=== PATIENT | female | born 1960 | race African-American/Black ===

== ENCOUNTER 2024-07-22 05:41 | Observation (INO) | payer BC ==
--- OUTSIDE RECORDS SUMMARY | 2024-07-22 05:44 | XMS REPORT | Continuity of Care Document ---
Author Name Unknown Address [address] [facility] [address] [place] [address] [facility] thconnect Address [address] [facility] [address] [place] [address] Care Team Providers Care Surveillance Monitor Name Role Phone ROUSE_F Attending Clinician Unavailable GC_GCBZW_Kadiyala_S Attending Clinician Unavaila tiburcio PADILLA_R Attending Clinician Unavailable Amandeep Padilla Attending Clinician [phone] ROUSE_F Admitting Clinician Unavailable GC_GCBZW_Kadiyala_S Admitting Clinician Unavaila tiburcio TITUSON_R Admitting Clinician Unavailable Payers Payer Name Policy Type Policy Number Effective Date Expirati on Date Source [place] [id number] 2019 00:00:00 Problems Condition Name Condition Details Condition Category Status Onset Date Resolution Date Last Treatment Date Treating Clinician Comments Source Vitamin D deficiency Vitamin D Deficiency Problem Active 01-26 00:00: 00 [facility] Mixed anxiety and depressive disorder Mixed Anxiety and Depressive Disorder Problem Active 01-18 00:00: 00 [facility] Non-rheuma tic mitral regurgitat ion Non-rheuma tic Mitral Regurgitat ion Problem Active 01-13 00:00: 00 [facility] Aortic incompeten ce, non-rheuma tic Aortic Incompeten ce, Non-rheuma tic Problem Active 01-13 00:00: [facility] Paroxysmal atrial fibrillati on Paroxysmal Atrial Fibrillati on Problem Active 01-13 00:00: 00 [facility] Long-term current use of anticoagul ant Long-term Current Use of Anticoagul ant Problem Active 8-04 00:00: 00 [facility] Anxiety Anxiety Problem Active 7-14 00:00: 00 [facility] Body mass index 40+ - severely obese Body Mass Index 40+ - Severely Obese Problem Active 3-22 00:00: 00 [facility] Hyperchole sterolemia Hyperchole sterolemia Problem Active 2-24 00:00: 00 [facility] Prediabete s Prediabete s Problem Active 2-24 00:00: 00 [facility] Iron deficiency anemia Iron Deficiency Anemia Problem Active 3-15 00:00: 00 [facility] Essential hypertensi on Essential Hypertensi on Problem Active 7- 00:00: 00 [facility] Social History Smoking Status Start Date Stop Date Source Never Smoker [facility] Medications Ordered Medication Name Filled Medication Name Start Date Stop Date Current Medication? Ordering Clinician Indication Dosage Frequency Signature (SIG) Comments Components Source carvedilol 3.125 mg tablet TAKE 1 TABLET BY MOUTH TWICE DAILY carvedilol 3.125 mg tablet TAKE 1 TABLET BY MOUTH TWICE DAILY No carvedilol 3.125 mg tablet TAKE 1 TABLET BY MOUTH TWICE DAILY [facility] carvedilol 6.25 mg tablet Take 1 tablet twice a day by oral route. carvedilol 6.25 mg tablet Take 1 tablet twice a day by oral route. No 1 BID carvedilol 6.25 mg tablet Take 1 tablet twice a day by oral route. [facility] carvedilol 12.5 mg tablet Take 1 tablet twice a day by oral route. carvedilol 12.5 mg tablet Take 1 tablet twice a day by oral route. No 1 BID carvedilol 12.5 mg tablet Take 1 tablet twice a day by oral route. [facility] carvedilol 6.25 mg tablet TAKE 1 TABLET BY MOUTH TWICE DAILY carvedilol 6.25 mg tablet TAKE 1 TABLET BY MOUTH TWICE DAILY No carvedilol 6.25 mg tablet TAKE 1 TABLET BY MOUTH TWICE DAILY [facility] atorvastati n 10 mg tablet Take 1 tablet every day by oral route. atorvastati n 10 mg tablet Take 1 tablet every day by oral route. No 1 Q1D atorvastat in 10 mg tablet Take 1 tablet every day by oral route. [facility] fenofibrate micronized 134 mg capsule Take 1 capsule every day by oral route for 10 days. fenofibrate micronized 134 mg capsule Take 1 capsule every day by oral route for 10 days. No 1capsul e(s) Q1D fenofibrat e micronized 134 mg capsule Take 1 capsule every day by oral route for 10 days. [facility] hydroxychlo roquine 200 mg tablet 2 po first dose then 1 po bid x 5 days hydroxychlo roquine 200 mg tablet 2 po first dose then 1 po bid x 5 days No hydroxychl oroquine 200 mg tablet 2 po first dose then 1 po bid x 5 days [facility] ivermectin 3 mg tablet Take 5 tablets every day by oral route for 5 days. ivermectin 3 mg tablet Take 5 tablets every day by oral route for 5 days. No 5 Q1D ivermectin 3 mg tablet Take 5 tablets every day by oral route for 5 days. [facility] prednisone 20 mg tablet 3 po first day, 2 po second day, 1 po qd until gone prednisone 20 mg tablet 3 po first day, 2 po second day, 1 po qd until gone No prednisone 20 mg tablet 3 po first day, 2 po second day, 1 po qd until gone [facility] Zithromax Z-Bernardo 250 mg tablet TAKE 2 TABLETS (500 MG) BY ORAL ROUTE ONCE DAILY FOR 1 DAY THEN 1 TABLET (250 MG) BY ORAL ROUTE ONCE DAILY FOR 4 DAYS Zithromax Z-Bernardo 250 mg tablet TAKE 2 TABLETS (500 MG) BY ORAL ROUTE ONCE DAILY FOR 1 DAY THEN 1 TABLET (250 MG) BY ORAL ROUTE ONCE DAILY FOR 4 DAYS No Zithromax Z-Bernardo 250 mg tablet TAKE 2 TABLETS (500 MG) BY ORAL ROUTE ONCE DAILY FOR 1 DAY THEN 1 TABLET (250 MG) BY ORAL ROUTE ONCE DAILY FOR 4 DAYS [facility] carvedilol 25 mg tablet Take 1 tablet twice a day by oral route. carvedilol 25 mg tablet Take 1 tablet twice a day by oral route. No 1 BID carvedilol 25 mg tablet Take 1 tablet twice a day by oral route. [facility] Eliquis 5 mg tablet TAKE 1 TABLET BY MOUTH TWICE DAILY Eliquis 5 mg tablet TAKE 1 TABLET BY MOUTH TWICE DAILY No Eliquis 5 mg tablet TAKE 1 TABLET BY MOUTH TWICE DAILY [facility] hydroxyzine HCl 25 mg tablet TAKE 1 TABLET BY MOUTH THREE TIMES DAILY NEEDED hydroxyzine HCl 25 mg tablet TAKE 1 TABLET BY MOUTH THREE TIMES DAILY NEEDED No hydroxyzin e HCl 25 mg tablet TAKE 1 TABLET BY MOUTH THREE TIMES DAILY NEEDED [facility] losartan 50 mg tablet TAKE 1 TABLET BY MOUTH EVERY DAY losartan 50 mg tablet TAKE 1 TABLET BY MOUTH EVERY DAY No losartan 50 mg tablet TAKE 1 TABLET BY MOUTH EVERY DAY [facility] venlafaxine ER 75 mg capsule,ext ended release 24 hr Take 1 capsule every day by oral route for 30 days. venlafaxine ER 75 mg capsule,ext ended release 24 hr Take 1 capsule every day by oral route for 30 days. No 1capsul e(s) Q1D venlafaxin e ER 75 mg capsule,ex tended release 24 hr Take 1 capsule every day by oral route for 30 days. [facility] atorvastati n 10 mg tablet TAKE 1 TABLET BY MOUTH EVERY DAY atorvastati n 10 mg tablet TAKE 1 TABLET BY MOUTH EVERY DAY No atorvastat in 10 mg tablet TAKE 1 TABLET BY MOUTH EVERY DAY [facility] carvedilol 25 mg tablet TAKE 1 TABLET BY MOUTH TWICE DAILY carvedilol 25 mg tablet TAKE 1 TABLET BY MOUTH TWICE DAILY No carvedilol 25 mg tablet TAKE 1 TABLET BY MOUTH TWICE DAILY [facility] Eliquis 5 mg tablet TAKE 1 TABLET BY MOUTH TWICE DAILY Eliquis 5 mg tablet TAKE 1 TABLET BY MOUTH TWICE DAILY No Eliquis 5 mg tablet TAKE 1 TABLET BY MOUTH TWICE DAILY [facility] hydroxyzine HCl 25 mg tablet TAKE 1 TABLET BY MOUTH THREE TIMES DAILY NEEDED hydroxyzine HCl 25 mg tablet TAKE 1 TABLET BY MOUTH THREE TIMES DAILY NEEDED No hydroxyzin e HCl 25 mg tablet TAKE 1 TABLET BY MOUTH THREE TIMES DAILY NEEDED [facility] losartan 50 mg tablet TAKE 1 TABLET BY MOUTH EVERY DAY losartan 50 mg tablet TAKE 1 TABLET BY MOUTH EVERY DAY No losartan 50 mg tablet TAKE 1 TABLET BY MOUTH EVERY DAY [facility] venlafaxine ER 75 mg capsule,ext ended release 24 hr TAKE 1 CAPSULE BY MOUTH EVERY DAY venlafaxine ER 75 mg capsule,ext ended release 24 hr TAKE 1 CAPSULE BY MOUTH EVERY DAY No venlafaxin e ER 75 mg capsule,ex tended release 24 hr TAKE 1 CAPSULE BY MOUTH EVERY DAY [facility] atorvastati n 10 mg tablet TAKE 1 TABLET BY MOUTH EVERY DAY atorvastati n 10 mg tablet TAKE 1 TABLET BY MOUTH EVERY DAY No atorvastat in 10 mg tablet TAKE 1 TABLET BY MOUTH EVERY DAY [facility] carvedilol 25 mg tablet TAKE 1 TABLET BY MOUTH TWICE DAILY carvedilol 25 mg tablet TAKE 1 TABLET BY MOUTH TWICE DAILY No carvedilol 25 mg tablet TAKE 1 TABLET BY MOUTH TWICE DAILY [facility] Eliquis 5 mg tablet TAKE 1 TABLET BY MOUTH TWICE DAILY Eliquis 5 mg tablet TAKE 1 TABLET BY MOUTH TWICE DAILY No Eliquis 5 mg tablet TAKE 1 TABLET BY MOUTH TWICE DAILY [facility] hydroxyzine HCl 25 mg tablet TAKE 1 TABLET BY MOUTH THREE TIMES DAILY NEEDED hydroxyzine HCl 25 mg tablet TAKE 1 TABLET BY MOUTH THREE TIMES DAILY NEEDED No hydroxyzin e HCl 25 mg tablet TAKE 1 TABLET BY MOUTH THREE TIMES DAILY NEEDED [facility] losartan 100 mg tablet TAKE 1 TABLET BY MOUTH EVERY DAY losartan 100 mg tablet TAKE 1 TABLET BY MOUTH EVERY DAY No losartan 100 mg tablet TAKE 1 TABLET BY MOUTH EVERY DAY [facility] venlafaxine ER 75 mg capsule,ext ended release 24 hr TAKE 1 CAPSULE BY MOUTH EVERY DAY venlafaxine ER 75 mg capsule,ext ended release 24 hr TAKE 1 CAPSULE BY MOUTH EVERY DAY No venlafaxin e ER 75 mg capsule,ex tended release 24 hr TAKE 1 CAPSULE BY MOUTH EVERY DAY [facility] amlodipine 5 mg tablet Take 1 tablet every day by oral route. amlodipine 5 mg tablet Take 1 tablet every day by oral route. No 1 Q1D amlodipine 5 mg tablet Take 1 tablet every day by oral route. [facility] Vital Signs Vital Name Observation Time Observation Value Comments S ource BMI (Body Mass Index) 2023-07-24 00:00:00 47 kg/m2 [facility] Height 2023-07-24 00:00:00 61 [in_i] [facility] BP Diastolic 2023-07-24 00:00:00 82 mm[Hg] [facility] Body Weight 2023-07-24 00:00:00 3984 [oz_av] [facility] BP Systolic 2023-07-24 00:00:00 122 mm[Hg] [facility] BP Diastolic 2022-07-28 00:00:00 74 mm[Hg] [facility] Height 2022-07-28 00:00:00 61 [in_i] [facility] BMI (Body Mass Index) 2022-07-28 00:00:00 41.9 kg/m2 [facility] BP Systolic 2022-07-28 00:00:00 134 mm[Hg] [facility] Body Weight 2022-07-28 00:00:00 3544 [oz_av] [facility] BP Diastolic 2022-02-22 00:00:00 80 mm[Hg] [facility] Height 2022-02-22 00:00:00 61 [in_i] [facility] BMI (Body Mass Index) 2022-02-22 00:00:00 43.3 kg/m2 [facility] BP Systolic 2022-02-22 00:00:00 118 mm[Hg] [facility] Body Weight 2022-02-22 00:00:00 3664 [oz_av] [facility] BP Diastolic 2022-01-18 00:00:00 76 mm[Hg] [facility] Height 2022-01-18 00:00:00 61 [in_i] [facility] BMI (Body Mass Index) 2022-01-18 00:00:00 42.5 kg/m2 [facility] BP Systolic 2022-01-18 00:00:00 118 mm[Hg] [facility] Body Weight 2022-01-18 00:00:00 3600 [oz_av] [facility] BP Diastolic 2021-12-23 00:00:00 88 mm[Hg] [facility] Height 2021-12-23 00:00:00 61 [in_i] [facility] BMI (Body Mass Index) 2021-12-23 00:00:00 42.9 kg/m2 [facility] BP Systolic 2021-12-23 00:00:00 138 mm[Hg] [facility] Body Weight 2021-12-23 00:00:00 3632 [oz_av] [facility] Height 2021-11-22 00:00:00 61 [in_i] [facility] BP Diastolic 2021-08-31 00:00:00 72 mm[Hg] [facility] Height 2021-08-31 00:00:00 61 [in_i] [facility] BMI (Body Mass Index) 2021-08-31 00:00:00 44 kg/m2 [facility] BP Systolic 2021-08-31 00:00:00 136 mm[Hg] [facility] Body Weight 2021-08-31 00:00:00 3728 [oz_av] [facility] BP Diastolic 2021-08-05 00:00:00 86 mm[Hg] [facility] Height 2021-08-05 00:00:00 61 [in_i] [facility] BMI (Body Mass Index) 2021-08-05 00:00:00 44 kg/m2 [facility] BP Systolic 2021-08-05 00:00:00 144 mm[Hg] [facility] Body Weight 2021-08-05 00:00:00 3728 [oz_av] [facility] BP Diastolic 2021-04-15 00:00:00 82 mm[Hg] [facility] Height 2021-04-15 00:00:00 61 [in_i] [facility] BMI (Body Mass Index) 2021-04-15 00:00:00 42.3 kg/m2 [facility] BP Systolic 2021-04-15 00:00:00 124 mm[Hg] [facility] Body Weight 2021-04-15 00:00:00 3584 [oz_av] [facility] BP Diastolic 2021-04-01 00:00:00 82 mm[Hg] [facility] Height 2021-04-01 00:00:00 61 [in_i] [facility] BMI (Body Mass Index) 2021-04-01 00:00:00 42.5 kg/m2 [facility] BP Systolic 2021-04-01 00:00:00 158 mm[Hg] [facility] Body Weight 2021-04-01 00:00:00 3600 [oz_av] [facility] BP Diastolic 2021-01-28 00:00:00 78 mm[Hg] [facility] Height 2021-01-28 00:00:00 61 [in_i] [facility] BMI (Body Mass Index) 2021-01-28 00:00:00 43.5 kg/m2 [facility] BP Systolic 2021-01-28 00:00:00 118 mm[Hg] [facility] Body Weight 2021-01-28 00:00:00 3680 [oz_av] [facility] BP Diastolic 2020-08-25 00:00:00 84 mm[Hg] [facility] Height 2020-08-25 00:00:00 61 [in_i] [facility] BMI (Body Mass Index) 2020-08-25 00:00:00 42.7 kg/m2 [facility] BP Systolic 2020-08-25 00:00:00 182 mm[Hg] [facility] Body Weight 2020-08-25 00:00:00 3616 [oz_av] [facility] Procedures Procedure Date / Time Performed Performing Clinicia n Source MAMMO, screening, bilateral 2023-07-24 00:00:00 [facility] MAMMO, screening, bilateral 2021-08-05 00:00:00 [facility] Delivery 1985-05-26 00:00:00 [facility] Plan of Care Planned Activity Planned Date Details Comments Source Diagnostic Test Pending 2023-07-24 00:00:00 CMP, serum or plasma [code = CMP, serum or plasma] [facility] Diagnostic Test Pending 2023-07-24 00:00:00 CBC w/ auto diff [code = CBC w/ auto diff] [facility] Diagnostic Test Pending 2023-07-24 00:00:00 HbA1c (hemoglobin A1c), blood [code = HbA1c (hemoglobin A1c), blood] [facility] Diagnostic Test Pending 2023-07-24 00:00:00 vitamin D, 25-hydroxy, total, serum [code = vitamin D, 25-hydroxy, total, serum] [facility] Diagnostic Test Pending 2023-07-24 00:00:00 lipid panel, serum [code = lipid panel, serum] [facility] Diagnostic Test Pending 2023-07-24 00:00:00 TSH + free T4, serum [code = TSH + free T4, serum] [facility] Diagnostic Test Pending 2023-07-24 00:00:00 urinalysis, complete [code = urinalysis, complete] [facility] Diagnostic Test Pending 2023-07-24 00:00:00 noninvasive colorectal cancer DNA + occult blood screening, QL, stool [code = noninvasive colorectal cancer DNA + occult blood screening, QL, stool] [facility] Future Scheduled Test Close foll ow up with PCP and cardio. [code = Close follow up with PCP and cardio.] [facility] Instructions [facility] Encounters Start Date/Time End Date/Time Encounter Type Admission Type Attending Clinicians Care Facility Care Department Encounter ID Source 2023-07-24 00:00:2023-07-24 00:00:00 Out[address] ROUSE_F [facility] [id number] [facility] 2023-07-24 00:00:00 2023-07-24 00:00:00 JORGE Monteiro-C: [address] [place] [address] , Ph. [phone] [facility], [address] PAD[place]A [id number] [facility] 2023-07-17 00:00:00 2023-07-17 00:00:00 [address] R[facility]_F [facility] [id number] [facility] 2023-04-10 00:00:00 2023-04-10 00:00:00 Outpatient GC_GCBZW_Ka diyala_S [facility] [id number] [facility] 2023-02-24 00:00:00 2023-02-24 00:00:00 Outpatient ERICKSON_R [facility] [id number] [facility] 2022-07-28 00:00:00 2022-07-28 00:00:[address]_[facility] [id number] [facility] 2022-07-28 00:00:00 2022-07-28 00:00:[address] [facility]_R [facility] [id number] [facility] 2022-07-28 00:00:00 2022-07-28 00:00:00 Amandeep Padilla, : [address] [place] [address] , Ph. [facility], DR[facility] P[place]A [phone] [facility] 2022-07-06 00:00:00 2022-07-06 00:00:00 [address] ERICKSON_R [facility] [id number] [facility] 2022-03-22 00:00:00 2022-03-22 00:00:[address]_R [facility] [id number] [facility] 2022-02-22 00:00:00 2022-02-22 00:00:00 [address] [facility]SON_R [facility] [id number] [facility] 2022-02-22 00:00:00 2022-02-22 00:00:00 Amandeep Padilla, DO: [address] [place] [address] , Ph. [facility], DR. [place] [phone] [facility] 2022-02-22 00:00:00 2022-02-22 00:00:[address] [facility] [id number] 2022-02-15 00:00:00 2022-02-15 00:00:00 [address] [facility]_R [facility] [id number] 2022-01-20 00:00:00 2022-01-20 00:00:00 [address] [facility]SON_R [facility] [id number] [facility] 2022-01-18 00:00:00 2022-01-18 00:00:00 [address] ER[facility]SON_R [facility] [id number] [facility] 2022-01-18 00:00:00 2022-01-18 00:00:00 Amandeep Padilla, DO: [address] [place] [address] , Ph. [facility], [address] [place] [id number] [facility] 2022-01-18 00:00:00 2022-01-18 00:00:[address] [facility] [id number] 2022-01-06 00:00:00 2022-01-06 00:00:00 [address] ERICKSON_R [facility] [id number] [facility] 2021-12-27 10:47:00 2021-12-27 10:47:00 Out[address] ERICKSON_R [facility] [id number] [facility] 2021-12-23 05:53:00 2021-12-23 05:53:00 [address] [facility]ICKSON_R [facility] [id number] [facility] 2021-12-23 00:00:00 2021-12-23 00:00:00 Amandeep Padilla, DO: [address] [place] [address] , Ph. [phone] [facility], [address] [place] [phone] [facility] 2021-12-23 00:00:00 2021-12-23 00:00:[address] [facility] [id number] 2021-11-29 05:10:00 2021-11-29 05:10:00 [address] [facility]_R [facility] [id number] [facility] 2021-11-29 00:00:00 2021-11-29 00:00:00 Amandeep Padilla, DO: [address], [place] [address] , Ph. [phone] [facility], [address] [place] [id number] [facility] 2021-11-29 00:00:00 2021-11-29 00:00:[address] [facility] [id number] 2021-11-27 01:35:00 2021-11-27 01:35:00 [address] ERICKSON_R [facility] [id number] [facility] 2021-11-22 05:26:00 2021-11-22 05:26:00 Out[address] ERICKSON_R [facility] [id number] [facility] 2021-11-22 00:00:00 2021-11-22 00:00:00 Amandeep Padilla, DO: [address] [place] [address] , Ph. [facility], [address] [place] [phone] [facility] 2021-11-22 00:00:00 2021-11-22 00:00:[address] [facility] [id number] 2021-09-18 01:43:00 2021-09-18 01:43:00 [address] ERICKSON_R [facility] [id number] [facility] 2021-08-31 06:32:00 2021-08-31 06:32:00 Out[address] ERICKSON_R [facility] [id number] [facility] 2021-08-31 00:00:00 2021-08-31 00:00:00 Amandeep Padilla, DO: [address] [place] [address] [place] [address] , Ph. [phone] [facility], [address] [place] [id number] [facility] 2021-08-31 00:00:00 2021-08-31 00:00:[address] [facility] [id number] 2021-08-27 05:18:00 2021-08-27 05:18:00 [address] ERICKSON_R [facility] [id number] [facility] 2021-08-05 11:45:00 2021-08-05 11:45:00 [address] ERICKSON_R [facility] [id number] [facility] 2021-08-05 00:00:00 2021-08-05 00:00:00 Amandeep Padilla, DO: [address] , [place] [address] , Ph. [phone] [place] [address], DR[address] P[place]A [id number] [facility] 2021-08-05 00:00:00 2021-08-05 00:00:[address] [facility] [id number] 2021-07-24 07:32:00 2021-07-24 07:32:00 [address] ERICKSON_R [facility] [id number] [facility] 2021-06-19 04:34:00 2021-06-19 04:34:00 [address] ERICKSON_R [facility] [id number] [facility] 2021-05-15 05:22:00 2021-05-15 05:22:00 [address] ERICKSON_R [facility] [id number] [facility] 2021-04-19 11:17:00 2021-04-19 11:17:00 [address] ERICKSON_R [facility] [id number] [facility] 2021-04-15 02:09:00 2021-04-15 02:09:00 [address] ERICKSON_R [facility] [id number] [facility] [facility] 2021-04-15 00:00:00 2021-04-15 00:00:00 Amandeep Padilla, DO: [address], [place] [address] , Ph. [phone] [facility], DR[address] PADILLA [phone] [facility] 2021-04-15 00:00:00 2021-04-15 00:00:[address] [facility] [id number] 2021-04-01 11:28:00 2021-04-01 11:28:00 Outpatient ERANTONION_R [facility] [id number] [facility] 2021-04-01 00:00:00 2021-04-01 00:00:[address] [facility] [id number] 2021-04-01 00:00:00 2021-04-01 00:00:00 Amandeep Padilla, DO: [address], [place] [address] , Ph. [facility], DR. PADILLA [phone] [facility] 2021-01-28 11:52:00 2021-01-28 11:52:00 Out[address] ERICKSON_R [facility] [id number] [facility] 2021-01-28 00:00:00 2021-01-28 00:00:[address] [facility] [id number] 2021-01-28 00:00:00 2021-01-28 00:00:00 Amandeep Padilla, DO: [address] [place] [place] [address] , Ph. [facility], DR. PADILLA [phone] [facility] 2020-08-25 10:13:00 2020-08-25 10:13:00 [address] ERRAY_R [facility] [id number] [facility] 2020-08-25 00:00:00 2020-08-25 00:00:[address] [facility] [id number] 2020-08-25 00:00:00 2020-08-25 00:00:00 Amandeep Padilla, DO: [address] [place] [address] , Ph. [facility], DR. PADILLA [phone] [facility] Results Test Description Test Time Test Comments Results Result Co mments Source [facility] W Auto Differential panel - [id number] 00:00:00* Test Item Value Reference Range Interpretation Comme nts Leukocytes [#/volume] in Blo od by Automated count (test code = 6690-2) 5.2 x10e3/uL 3.4-10.8 Erythrocytes [#/volume] in Blood by Automated count (test code = 789-8) 5.01 x10e6/uL 3.77-5.28 Hemoglobin [Mass/volume] in Blood (test code = 718-7) 12.0 g/dL 11.1-15.9 Hematocrit [Volume Fraction] of Blood by Automated count (test code = 4544-3) 38.4 % 34.0-46.6 Erythrocyte mean corpuscular volume [Entitic volume] by Automated count (test code = 787-2) 77 fL 79-97 L MCH [Entitic mass] by Automa beryl count (test code = 785-6) 24.0 pg 26.6-33.0 L Erythrocyte mean corpuscular hemoglobin concentration [Mass/volume] by Automated count (test code = 786-4) 31.3 g/dL 31.5-35.7 L Erythrocyte distribution wid th [Ratio] by Automated count (test code = 788-0) 15.4 % 11.7-15.4 Platelets [#/volume] in Bloo d by Automated count (test code = 777-3) 336 x10e3/uL 150-450 Neutrophils/100 leukocytes i n Blood by Automated count (test code = 770-8) 60 % not estab. Lymphocytes/100 leukocytes i n Blood by Automated count (test code = 736-9) 24 % not estab. Monocytes/100 leukocytes in Blood by Automated count (test code = 5905-5) 11 % not estab. Eosinophils/100 leukocytes i n Blood by Automated count (test code = 713-8) 3 % not estab. Basophils/100 leukocytes in Blood by Automated count (test code = 706-2) 1 % not estab. immature cells (test code = immature cells) campaign specialist Neutrophils [#/volume] in Bl ood by Automated count (test code = 751-8) 3.2 x10e3/uL 1.4-7.0 Lymphocytes [#/volume] in Bl ood by Automated count (test code = 731-0) 1.3 x10e3/uL 0.7-3.1 Monocytes [#/volume] in Bloo d by Automated count (test code = 742-7) 0.6 x10e3/uL 0.1-0.9 Eosinophils [#/volume] in Bl ood by Automated count (test code = 711-2) 0.1 x10e3/uL 0.0-0.4 Basophils [#/volume] in Bloo d by Automated count (test code = 704-7) 0.1 x10e3/uL 0.0-0.2 Immature granulocytes/100 leukocytes in Blood by Automated count (test code = 27197-8) 1 % not estab. Immature granulocytes [#/volume] in Blood by Automated count (test code = 89203-5) 0.0 x10e3/uL 0.0-0.1 Nucleated erythrocytes/100 leukocytes [Ratio] in Blood by Automated count (test code = 59062-0) campaign specialist Morphology [Interpretation] in Blood Narrative (test code = 16083-8) campaign specialist [facility] - Serum or [id number] 00:00:00* Test Item Value Reference Range Interpretation Comme nts Glucose [Mass/volume] in Ser um or Plasma (test code = 2345-7) 90 mg/dL 65-99 Urea nitrogen [Mass/volume] in Serum or Plasma (test code = 3094-0) 13 mg/dL 6-24 Creatinine [Mass/volume] in Serum or Plasma (test code = 2160-0) 0.99 mg/dL 0.57-1.00 Glomerular filtration rate/1.73 sq M.predicted among non-blacks [Volume Rate/Area] in Serum, Plasma or Blood by Creatinine-based formula (CKD-EPI) (test code = 39406-9) 63 mL/min/1.73 >59 Glomerular filtration rate/1.73 sq M.predicted among blacks [Volume Rate/Area] in Serum, Plasma or Blood by Creatinine-based formula (CKD-EPI) (test code = 22018-5) 73 mL/min/1.73 >59 Urea nitrogen/Creatinine [Ma ss Ratio] in Serum or Plasma (test code = 3097-3) 13 9-23 Sodium [Moles/volume] in Ser um or Plasma (test code = 2951-2) 142 mmol/L 134-144 Potassium [Moles/volume] in Serum or Plasma (test code = 2823-3) 5.0 mmol/L 3.5-5.2 Chloride [Moles/volume] in Serum or Plasma (test code = 2075-0) 106 mmol/L 96-106 Carbon dioxide, total [Moles/volume] in Serum or Plasma (test code = 2027-9) 24 mmol/L 20-29 Calcium [Mass/volume] in Ser um or Plasma (test code = 26008-6) 9.5 mg/dL 8.7-10.2 Protein [Mass/volume] in Ser um or Plasma (test code = 2885-2) 8.2 g/dL 6.0-8.5 Albumin [Mass/volume] in Ser um or Plasma (test code = 1751-7) 4.2 g/dL 3.8-4.9 Globulin [Mass/volume] in Serum by calculation (test code = 32346-0) 4.0 g/dL 1.5-4.5 Albumin/Globulin [Mass Ratio ] in Serum or Plasma (test code = 1759-0) 1.1 1.2-2.2 L Bilirubin.total [Mass/volume ] in Serum or Plasma (test code = 1975-2) 0.3 mg/dL 0.0-1.2 Alkaline phosphatase [Enzymatic activity/volume] in Serum or Plasma (test code = 6768-6) 76 IU/L 44-121 Aspartate aminotransferase [Enzymatic activity/volume] in Serum or Plasma (test code = 1920-8) 19 IU/L 0-40 Alanine aminotransferase [Enzymatic activity/volume] in Serum or Plasma (test code = 1742-6) 13 IU/L 0-32 [facility] - Serum or [id number] 00:00:00* Test Item Value Reference Range Interpretation Comme nts Cholesterol [Mass/volume] in Serum or Plasma (test code = 2093-3) 170 mg/dL 100-199 Triglyceride [Mass/volume] i n Serum or Plasma (test code = 2571-8) 43 mg/dL 0-149 Cholesterol in HDL [Mass/vol ume] in Serum or Plasma (test code = 2085-9) 40 mg/dL >39 Cholesterol in VLDL [Mass/vo lume] in Serum or Plasma by calculation (test code = 49066-9) 9 mg/dL 5-40 Cholesterol in LDL [Mass/vol ume] in Serum or Plasma by calculation (test code = 00041-9) 121 mg/dL 0-99 H Laboratory comment [Text] in Report Narrative (test code = 11437-3) campaign specialist [facility] W Auto Differential panel - [id number] 00:00:00* Test Item Value Reference Range Interpretation Comme nts Leukocytes [#/volume] in Blo od by Automated count (test code = 6690-2) 4.7 x10e3/uL 3.4-10.8 Erythrocytes [#/volume] in Blood by Automated count (test code = 789-8) 4.64 x10e6/uL 3.77-5.28 Hemoglobin [Mass/volume] in Blood (test code = 718-7) 10.8 g/dL 11.1-15.9 L Hematocrit [Volume Fraction] of Blood by Automated count (test code = 4544-3) 34.1 % 34.0-46.6 Erythrocyte mean corpuscular volume [Entitic volume] by Automated count (test code = 787-2) 74 fL 79-97 L Erythrocyte mean corpuscular hemoglobin [Entitic mass] by Automated count (test code = 785-6) 23.3 pg 26.6-33.0 L Erythrocyte mean corpuscular hemoglobin concentration [Mass/volume] by Automated count (test code = 786-4) 31.7 g/dL 31.5-35.7 Erythrocyte distribution wid th [Ratio] by Automated count (test code = 788-0) 15.7 % 11.7-15.4 H Platelets [#/volume] in Bloo d by Automated count (test code = 777-3) 330 x10e3/uL 150-450 Neutrophils/100 leukocytes i n Blood by Automated count (test code = 770-8) 54 % not estab. Lymphocytes/100 leukocytes i n Blood by Automated count (test code = 736-9) 30 % not estab. Monocytes/100 leukocytes in Blood by Automated count (test code = 5905-5) 12 % not estab. Eosinophils/100 leukocytes i n Blood by Automated count (test code = 713-8) 2 % not estab. Basophils/100 leukocytes in Blood by Automated count (test code = 706-2) 2 % not estab. immature cells (test code = immature cells) campaign specialist Neutrophils [#/volume] in Bl ood by Automated count (test code = 751-8) 2.5 x10e3/uL 1.4-7.0 Lymphocytes [#/volume] in Bl ood by Automated count (test code = 731-0) 1.4 x10e3/uL 0.7-3.1 Monocytes [#/volume] in Bloo d by Automated count (test code = 742-7) 0.6 x10e3/uL 0.1-0.9 Eosinophils [#/volume] in Bl ood by Automated count (test code = 711-2) 0.1 x10e3/uL 0.0-0.4 Basophils [#/volume] in Bloo d by Automated count (test code = 704-7) 0.1 x10e3/uL 0.0-0.2 Immature granulocytes/100 leukocytes in Blood by Automated count (test code = 80695-2) 0 % not estab. Immature granulocytes [#/volume] in Blood by Automated count (test code = 19749-1) 0.0 x10e3/uL 0.0-0.1 Nucleated erythrocytes/100 leukocytes [Ratio] in Blood by Automated count (test code = 69371-9) campaign specialist Morphology [Interpretation] in Blood Narrative (test code = 94920-2) campaign specialist [facility] 2000 [facility] - Serum or [id number] 00:00:00* Test Item Value Reference Range Interpretation Comme nts Glucose [Mass/volume] in Ser um or Plasma (test code = 2345-7) 92 mg/dL 65-99 Urea nitrogen [Mass/volume] in Serum or Plasma (test code = 3094-0) 13 mg/dL 6-24 Creatinine [Mass/volume] in Serum or Plasma (test code = 2160-0) 0.93 mg/dL 0.57-1.00 Glomerular filtration rate/1.73 sq M.predicted among non-blacks [Volume Rate/Area] in Serum, Plasma or Blood by Creatinine-based formula (CKD-EPI) (test code = 44661-1) 68 mL/min/1.73 >59 Glomerular filtration rate/1.73 sq M.predicted among blacks [Volume Rate/Area] in Serum, Plasma or Blood by Creatinine-based formula (CKD-EPI) (test code = 01493-2) 79 mL/min/1.73 >59 Urea nitrogen/Creatinine [Ma ss Ratio] in Serum or Plasma (test code = 3097-3) 14 9-23 Sodium [Moles/volume] in Ser um or Plasma (test code = 2951-2) 141 mmol/L 134-144 Potassium [Moles/volume] in Serum or Plasma (test code = 2823-3) 4.5 mmol/L 3.5-5.2 Chloride [Moles/volume] in Serum or Plasma (test code = 2074-0) 107 mmol/L 96-106 H Carbon dioxide, total [Moles/volume] in Serum or Plasma (test code = 2028-02) 23 mmol/L 20-29 Calcium [Mass/volume] in Ser um or Plasma (test code = 96516-7) 8.7 mg/dL 8.7-10.2 Protein [Mass/volume] in Ser um or Plasma (test code = 2885-2) 7.7 g/dL 6.0-8.5 Albumin [Mass/volume] in Ser um or Plasma (test code = 175-7) 3.8 g/dL 3.8-4.9 Globulin [Mass/volume] in Serum by calculation (test code = 35265-1) 3.9 g/dL 1.5-4.5 Albumin/Globulin [Mass Ratio ] in Serum or Plasma (test code = 1759-0) 1.0 1.2-2.2 L Bilirubin.total [Mass/volume ] in Serum or Plasma (test code = 1974-07) 0.3 mg/dL 0.0-1.2 Alkaline phosphatase [Enzymatic activity/volume] in Serum or Plasma (test code = 6768-6) 77 IU/L 39-117 Aspartate aminotransferase [Enzymatic activity/volume] in Serum or Plasma (test code = 192-8) 16 IU/L 0-40 Alanine aminotransferase [Enzymatic activity/volume] in Serum or Plasma (test code = 1742-6) 13 IU/L 0-32 [facility] - Serum or [id number] 00:00:00* Test Item Value Reference Range Interpretation Comme nts Cholesterol [Mass/volume] in Serum or Plasma (test code = 2092-3) 157 mg/dL 100-199 Triglyceride [Mass/volume] i n Serum or Plasma (test code = 257-8) 52 mg/dL 0-149 Cholesterol in HDL [Mass/vol ume] in Serum or Plasma (test code = 2084-) 38 mg/dL >39 L Cholesterol in VLDL [Mass/vo lume] in Serum or Plasma by calculation (test code = 86457-0) 11 mg/dL 5-40 Cholesterol in LDL [Mass/vol ume] in Serum or Plasma by calculation (test code = 15551-9) 108 mg/dL 0-99 H Laboratory comment [Text] in Report Narrative (test code = 67339-0) campaign specialist [facility] [Units/volume] in Serum or Plasma by Detection limit <= 0.005 mIU/[id number] 00:00:00* Test Item Value Reference Range Interpretation Comme nts Thyrotropin [Units/volume] i n Serum or Plasma by Detection limit <= 0.005 mIU/L (test code = 13281-5) 0.685 uIU/mL 0.450-4.500 [facility]Hemoglobin.total in Blood 2020-08-22 00:00:00* Test Item Value Reference Range Interpretation Comme nts Hemoglobin A1c/Hemoglobin.to marcel in Blood (test code = 4548-4) 5.7 % 4.8-5.6 H [facility]
[2024-07-22 06:15] LABS: Absolute Basophils 0.1 K/uL (0-0.5); Absolute Eosinophils 0.1 K/uL (0-0.5); Absolute Monocytes 0.7 K/uL (0.1-1.3); Absolute Neutrophil 3.9 K/uL (1.8-8.0); Basophils % 1.1 % (0-1.3); Eosinophils % 1.8 % (0-4.4); Hematocrit 38.4 % (36.0-45.0); Hemoglobin 12.3 g/dL (12.0-15.0); Lymphocytes % 17.7 % (15.3-44.8); MCH 26.9 pg (27.0-35.0); Monocytes % 11.4 % (3.3-12.3); Nucleated Red Blood Cells % 0.1 % (0-0); Platelets 298 thou/uL (152-406); RBC Red Blood Cell Count 4.58 M/uL (3.86-4.86)
[2024-07-22] MEDS ORDERED: METOPROLOL TAR 25 MG TAB ONE (06:23)
[2024-07-22] MEDS ORDERED: APIXABAN 5 MG TABLET ONE (06:23)
[2024-07-22] MEDS ORDERED: FUROSEMIDE 40 MG/4 ML VIAL ONE (06:23)
[2024-07-22] MEDS ORDERED: carvediloL 6.25 MG TAB ONE (06:23)
[2024-07-22 06:24] LABS: PT Prothrombin Time 13.5 SECONDS (9.4-12.5); Protime INR 1.29
[2024-07-22] MEDS ORDERED: MAGNESIUM SULFATE 1 gm IVPB 1 GM/100 ML BAG IV ONE (06:24)
[2024-07-22] MEDS ORDERED: METOPROLOL TARTRATE 5 MG/5 ML INJ IV ONE (06:24)
--- NOTE | 2024-07-22 06:27 | ER ---
Nurse's Notes [facility] Name: Rajani Givens Age: 63 yrs Sex: Female : 1960 Arrival Date: 07/22/2024 Time: 05:41 Bed 5 Private MD: Diagnosis: Persistent atrial fibrillation-WITH RVR;Dyspnea;detention (current) use of anticoagulants;Obesity, unspecified;Chronic combined systolic (congestive) and diastolic (congestive) heart failure;Essential (primary) hypertension Presentation: 07/22 05:59 Chief complaint: Patient states: shortness of breath that started when she was getting cp4 ready for work this morning. Coronavirus screen: Client denies travel out of the [place] in the last 14 days. At this time, the client does not indicate any symptoms associated with coronavirus-19. Ebola Screen: Patient negative for fever greater than or equal to 101.5 degrees Fahrenheit, and additional compatible Ebola Virus Disease symptoms Patient denies exposure to infectious person. Patient denies travel to an Ebola-affected area in the 21 days before illness onset. No symptoms or risks identified at this time. Initial Sepsis Screen: Does the patient meet any 2 criteria? HR > 90 bpm. No. Patient's initial sepsis screen is negative. Does the patient have a suspected source of infection? No. Patient's initial sepsis screen is negative. Risk Assessment: Do you want to hurt yourself or someone else? Patient reports no desire to harm self or others. Onset of symptoms was July 22, 2024. 05:59 Method Of Arrival: Ambulatory 4 05:59 Acuity: YUNG 3 cp4 Triage Assessment: 06:00 General: Appears in no apparent distress. comfortable, Behavior is calm, cooperative, cp4 appropriate for age. Pain: Denies pain. EENT: No signs and/or symptoms were reported regarding the EENT system. Neuro: Level of Consciousness is awake, alert, obeys commands, Oriented to person, place, time, situation. Cardiovascular: Patient's skin is warm and dry. Respiratory: Reports shortness of breath at rest Airway is patent Respiratory effort is even, unlabored, Onset: The symptoms/episode began/occurred this morning, the patient has mild shortness of breath. GI: No signs and/or symptoms were reported involving the gastrointestinal system. : No signs and/or symptoms were reported regarding the genitourinary system. Derm: No signs and/or symptoms reported regarding the dermatologic system. Musculoskeletal: No signs and/or symptoms reported regarding the musculoskeletal system. Historical: - Allergies: 06:00 No Known Allergies; cp4 - PMHx: 06:00 Atrial fibrillation; Hypertensive disorder; cp4 - Immunization history:: Adult Immunizations up to date. - Infectious Disease History:: Denies. - Family history:: not pertinent. - Social history:: Smoking status: Patient denies any tobacco usage or history of. Screenin:02 [facility] ED Fall Risk Assessment (Adult) History of falling in the last 3 months, cp4 including since admission No falls in past 3 months (0 pts) Confusion or Disorientation No (0 pts) Intoxicated or Sedated No (0 pts) Impaired Gait No (0 pts) Mobility Assist Device Used No (0 pt) Altered Elimination No (0 pt) Score/Fall Risk Level 0 - 2 = Low Risk Oriented to surroundings, Maintained a safe environment, Assessed \T\ reinforced patient's understanding of fall precautions, Hourly rounding (assess needs \T\ fall precautionary measures) done. Abuse screen: Denies threats or abuse. Denies injuries from another. Nutritional screening: No deficits noted. Tuberculosis screening: No symptoms or risk factors identified. Assessment: 06:17 Cardiovascular: Rhythm is atrial fibrillation. Respiratory: Airway is patent cp4 Respiratory effort is even, unlabored, Breath sounds are clear bilaterally. 07:43 Reassessment: Patient and/or family updated on plan of care and expected duration. Pain ap3 level reassessed. Patient is alert, oriented x 3, equal unlabored respirations, skin warm/dry/pink. General: Appears in no apparent distress. comfortable, Behavior is calm, cooperative, appropriate for age. General: patient ambulates from room to restroom unassisted, and is steady. . Neuro: Level of Consciousness is awake, alert, obeys commands, Oriented to person, place, time, situation, Appropriate for age. Cardiovascular: Patient's skin is warm and dry. Respiratory: Airway is patent Respiratory effort is even, unlabored, Respiratory pattern is regular, symmetrical. Vital Signs: 05:59 BP 181 / 113; Pulse 98; Resp 18; Temp 98.1; Pulse Ox 100% ; Weight 114.76 kg; Height 5 cp4 ft. 2 in. ; Pain 0/10; 07:00 BP 160 / 99; Pulse 87; Resp 17; Pulse Ox 100% ; ap3 09:10 BP 150 / 92; Pulse 88; Resp 18; Pulse Ox 99% on R/A; ap3 05:59 Body Mass Index 46.27 (114.76 kg, 157.48 cm) cp4 05:59 Pain Scale: Adult cp4 ED Course: 05:44 Patient arrived in ED. jj6 05:45 Ming Calderon MD is Attending Physician. jovanni 05:59 Dipti Bangura is Primary Nurse. cp4 06:00 Triage completed. cp4 06:00 Arm band placed on right wrist. Patient placed in waiting room. cp4 06:02 Bed in low position. Call light in reach. Side rails up X 1. cp4 06:02 No provider procedures requiring assistance completed. Inserted saline lock: 20 gauge cp4 in right antecubital area, using aseptic technique. Blood collected. Flushed with 10 mL NS. 06:25 XRAY Chest (1 view) In Process Unspecified. EDMS 06:25 Ky Velarde is Hospitalizing Provider. [facility] 07:44 Provided Education on: fall risk education . ap3 10:54 Patient admitted, IV remains in place. ap3 Administered Medications: 06:38 Drug: Metoprolol IVP 5 mg IVP once; Hold for SBP <100 or HR <60. Route: IVP; Site: br2 right antecubital; 07:48 Follow up: Response: No adverse reaction ap3 06:38 Drug: Metoprolol PO 25 mg PO once Route: PO; br2 07:48 Follow up: Response: No adverse reaction ap3 06:38 Drug: Magnesium Sulfate IVPB 1 grams IVPB once over 1 hrs Route: IVPB; Infused Over: 1 br2 hrs; Site: right antecubital; 08:33 Follow up: IV Status: Completed infusion ap3 06:38 Drug: Eliquis PO 5 mg PO once Route: PO; br2 07:48 Follow up: Response: No adverse reaction ap3 06:38 Drug: Coreg PO 3.125 mg PO once; administer with food Route: PO; br2 07:48 Follow up: Response: No adverse reaction ap3 06:38 Drug: Furosemide IVP 40 mg IVP once; give over 2 minutes Route: IVP; Site: right br2 antecubital; 07:47 Follow up: Response: No adverse reaction ap3 09:14 Not Given (Other Intervention Used): metoprolol5 mg IVP once; Hold for SBP <100 or HR ap3 <60. Medication: 06:02 VIS not applicable for this client. cp4 Outcome: 06:27 Decision to Hospitalize by Provider. jovanni 10:54 Admitted to ER Hold. Please see [facility] for further documentation. ap3 10:54 Condition: good 10:54 Discharge instructions given to patient, Instructed on the need for admit, 13:14 Patient left the ED. iw Signatures: Dispatcher [employer] EDMS Ming Calderon MD MD cha Williams, Irene RN RN iw Yudith Martinez RN RN ap3 Inez Douglass Christina cp4 Lakia Liriano RN RN br2 Corrections: (The following items were deleted from the chart) 06:17 06:02 Cardiovascular: cp4 cp4
--- NOTE | 2024-07-22 06:28 | EDPHYS ---
Physician Documentation [facility] Name: Rajani Givens Age: 63 yrs Sex: Female : 1960 Arrival Date: 07/22/2024 Time: 05:41 Bed 5 Private MD: ED Physician Ming Calderon HPI: 07/22 05:58 This 63 yrs old Black Female presents to ER via Unassigned with complaints of Cough, jovanni Shortness Of Breath. 05:58 The patient or guardian reports. jovanni Historical: - Allergies: 06:00 No Known Allergies; cp4 - PMHx: 06:00 Atrial fibrillation; Hypertensive disorder; cp4 - Immunization history:: Adult Immunizations up to date. - Infectious Disease History:: Denies. - Family history:: not pertinent. - Social history:: Smoking status: Patient denies any tobacco usage or history of. ROS: 05:59 Constitutional: Negative for fever, chills, and weight loss, Eyes: Negative for injury, jovanni pain, redness, and discharge, ENT: Negative for injury, pain, and discharge, Neck: Negative for injury, pain, and swelling, Cardiovascular: Negative for chest pain, palpitations, and edema, Abdomen/GI: Negative for abdominal pain, nausea, vomiting, diarrhea, and constipation, Back: Negative for injury and pain, : Negative for injury, bleeding, discharge, and swelling, MS/Extremity: Negative for injury and deformity, Skin: Negative for injury, rash, and discoloration, Neuro: Negative for headache, weakness, numbness, tingling, and seizure, Psych: Negative for depression, anxiety, suicide ideation, homicidal ideation, and hallucinations, Allergy/Immunology: Negative for hives, rash, and allergies, Endocrine: Negative for neck swelling, polydipsia, polyuria, polyphagia, and marked weight changes, Hematologic/Lymphatic: Negative for swollen nodes, abnormal bleeding, and unusual bruising, 05:59 Respiratory: Positive for cough, shortness of breath, at rest. Exam: 05:59 Constitutional: This is a well developed, well nourished patient who is awake, alert, jovanni and in no acute distress. Head/Face: Normocephalic, atraumatic. Eyes: Pupils equal round and reactive to light, extra-ocular motions intact. Lids and lashes normal. Conjunctiva and sclera are non-icteric and not injected. Cornea within normal limits. Periorbital areas with no swelling, redness, or edema. ENT: Nares patent. No nasal discharge, no septal abnormalities noted. Tympanic membranes are normal and external auditory canals are clear. Oropharynx with no redness, swelling, or masses, exudates, or evidence of obstruction, uvula midline. Mucous membranes moist. Neck: Trachea midline, no thyromegaly or masses palpated, and no cervical lymphadenopathy. Supple, full range of motion without nuchal rigidity, or vertebral point tenderness. No Meningismus. Chest/axilla: Normal chest wall appearance and motion. Nontender with no deformity. No lesions are appreciated. Cardiovascular: Regular rate and rhythm with a normal S1 and S2. No gallops, murmurs, or rubs. Normal PMI, no JVD. No pulse deficits. Respiratory: Lungs have equal breath sounds bilaterally, clear to auscultation and percussion. No rales, rhonchi or wheezes noted. No increased work of breathing, no retractions or nasal flaring. Abdomen/GI: Soft, non-tender, with normal bowel sounds. No distension or tympany. No guarding or rebound. No evidence of tenderness throughout. Back: No spinal tenderness. No costovertebral tenderness. Full range of motion. Skin: Warm, dry with normal turgor. Normal color with no rashes, no lesions, and no evidence of cellulitis. Neuro: Awake and alert, GCS 15, oriented to person, place, time, and situation. Cranial nerves II-XII grossly intact. Motor strength 5/5 in all extremities. Sensory grossly intact. Cerebellar exam normal. Normal gait. Psych: Awake, alert, with orientation to person, place and time. Behavior, mood, and affect are within normal limits. 05:59 Musculoskeletal/extremity: DVT Exam: No signs of deep vein thrombosis. no pain, no tenderness, negative Homans' sign noted on exam, no appreciated bluish discoloration, no erythema, no increased warmth, 06:15 ECG was reviewed by the Attending Physician. jovanni Vital Signs: 05:59 BP 181 / 113; Pulse 98; Resp 18; Temp 98.1; Pulse Ox 100% ; Weight 114.76 kg; Height 5 cp4 ft. 2 in. ; Pain 0/10; 07:00 BP 160 / 99; Pulse 87; Resp 17; Pulse Ox 100% ; ap3 09:10 BP 150 / 92; Pulse 88; Resp 18; Pulse Ox 99% on R/A; ap3 05:59 Body Mass Index 46.27 (114.76 kg, 157.48 cm) cp4 05:59 Pain Scale: Adult cp4 MDM: 05:45 Medical Screening Exam initiated jovanni 06:30 Differential diagnosis: Anemia Anxiety Reaction asthma, Bronchitis CHF exacerbation, jovanni Chronic Obstructive Pulmonary Disease pneumonia, Pneumothorax pulmonary edema, reactive airway disease, Sepsis Unstable Angina. Antibiotic administration: Not indicated. Immunization status: Influenza vaccine: within last 5 years. Data reviewed: vital signs, nurses notes, lab test result(s), EKG, radiologic studies, plain films. Consideration of Admission/Observation Patient was admitted/placed on observation. Escalation of care including admission/observation considered. I considered the following discharge prescriptions or medication management in the emergency department Medications were administered in the Emergency Department. See MAR. Independent interpretation of the following test(s) in the Emergency Department EKG: See my EKG interpretation above. Test considered but Not performed: Ultrasound NO 2 D ECHO. Historians other than the Patient: PT WELL INFORMED. Care significantly affected by the following chronic conditions: Hypertension, Obesity, ATRIAL FIBRILLATION. 07/22 05:57 Order name: Basic Metabolic Panel; Complete Time: 06:49 jovanni 07/22 05:57 Order name: CBC with Diff; Complete Time: 06:49 07/22 05:57 Order name: LFT's; Complete Time: 06:49 jovanni 07/22 05:57 Order name: Magnesium; Complete Time: 06:49 jovanni 07/22 05:57 Order name: NT PRO-BNP; Complete Time: 06:49 jovanni 07/22 05:57 Order name: PT-INR; Complete Time: 06:49 jovanni 07/22 05:57 Order name: Troponin HS; Complete Time: 06:49 [facility] 07/22 05:57 Order name: TSH; Complete Time: 06:49 jovanni 07/22 05:57 Order name: Urinalysis w/ reflexes [facility] 07/22 07:31 Order name: T4 Free EDME 07/22 07:31 Order name: Urinalysis w/ reflexes EDMS 07/22 07:31 Order name: Basic Metabolic Panel EDME 07/22 07:31 Order name: Basic Metabolic Panel EDME 07/22 07:31 Order name: CBC with Automated Diff EDMS 07/22 07:31 Order name: CBC with Automated Diff EDMS 07/22 07:31 Order name: Lipid Profile EDME 07/22 07:31 Order name: Lipid Profile EDME 07/22 07:31 Order name: Magnesium EDMS 07/22 07:31 Order name: Magnesium EDMS 07/22 07:31 Order name: Phosphorus EDME 07/22 07:31 Order name: Phosphorus EDME 07/22 07:31 Order name: Troponin High Sensitivity EDME 07/22 07:31 Order name: Troponin High Sensitivity EDME 07/22 07:31 Order name: Troponin High Sensitivity [facility] 07/22 07:34 Order name: Influenza Screen (A EDME 07/22 07:34 Order name: Respiratory Syncytial Virus Ag EDME 07/22 07:34 Order name: SARS-COV-2 Antigen Rapid [facility] 07/22 05:57 Order name: XRAY Chest (1 view) [facility] 07/22 05:57 Order name: Cardiac monitoring; Complete Time: 06:02 [facility] 07/22 05:57 Order name: EKG - Nurse/Tech; Complete Time: 06:18 [facility] 07/22 05:57 Order name: IV Saline Lock; Complete Time: 06:02 [facility] 07/22 05:57 Order name: Labs collected and sent; Complete Time: 06:02 [facility] 07/22 05:57 Order name: O2 Per Protocol; Complete Time: 06:02 [facility] 07/22 05:57 Order name: O2 Sat Monitoring; Complete Time: 06:02 [facility] EC:15 Rate is 105 beats/min. Rhythm is irregularly irregular. QRS [place] is Normal. NH interval jovanni is normal. QRS interval is normal. QT interval is normal. No Q waves. T waves are Normal. No ST changes noted. Clinical impression: Atrial Fibrillation and No evidence of ischemia. Interpreted by me. Reviewed by me. Administered Medications: 06:38 Drug: Metoprolol IVP 5 mg IVP once; Hold for SBP <100 or HR <60. Route: IVP; Site: br2 right antecubital; 07:48 Follow up: Response: No adverse reaction ap3 06:38 Drug: Metoprolol PO 25 mg PO once Route: PO; br2 07:48 Follow up: Response: No adverse reaction ap3 06:38 Drug: Magnesium Sulfate IVPB 1 grams IVPB once over 1 hrs Route: IVPB; Infused Over: 1 br2 hrs; Site: right antecubital; 08:33 Follow up: IV Status: Completed infusion ap3 06:38 Drug: Eliquis PO 5 mg PO once Route: PO; br2 07:48 Follow up: Response: No adverse reaction ap3 06:38 Drug: Coreg PO 3.125 mg PO once; administer with food Route: PO; br2 07:48 Follow up: Response: No adverse reaction ap3 06:38 Drug: Furosemide IVP 40 mg IVP once; give over 2 minutes Route: IVP; Site: right br2 antecubital; 07:47 Follow up: Response: No adverse reaction ap3 09:14 Not Given (Other Intervention Used): metoprolol5 mg IVP once; Hold for SBP <100 or HR ap3 <60. Disposition Summary: 07/22/24 06:27 Hospitalization Ordered Notes: Hospitalization Status: Inpatient Admission jovanni Provider: Ky Velarde cha Condition: Fair jovanni Problem: new jovanni Symptoms: have improved jovanni Bed/Room Type: Standard jovanni Location: Telemetry/MedSurg (Inpatient)(07/22/24 11:57) iw Room Assignment: 228(07/22/24 11:57) iw Diagnosis - Persistent atrial fibrillation - WITH RVR jovanni - Dyspnea jovanni - CHCF (current) use of anticoagulants jovanni - Obesity, unspecified jovanni - Chronic combined systolic (congestive) and diastolic (congestive) heart failure jovanni - Essential (primary) hypertension jovanni Discharge Instructions: - Discharge Summary Sheet jovanni - Atrial Fibrillation jovanni - Edema jovanni - Obesity, Adult jovanni - Edema, [id number] jovanni - Aspirin and Your Heart jovanni - Obesity, Adult, [id number] jovanni - Peripheral Edema jovanni Forms: - Medication Reconciliation Form jovanni - SBAR form jovanni - Leadership Thank You Letter jovanni Signatures: Dispatcher [employer] EDMing Valerio MD MD cha Williams, Irene RN PETROS iw Clementina French RN RN kb3 Dipti Bangura cp4 Lakia Liriano RN RN br2 Yudith Martinez RN ap3 Corrections: (The following items were deleted from the chart) 05:59 05:59 BASIC METABOLIC PANEL+C.LAB.BRZ ordered. EDMS EDMS 05:59 05:59 CBC+H.LAB.BRZ ordered. EDMS EDMS 05:59 05:59 HEPATIC FUNCTION+C.LAB.BRZ ordered. EDMS EDMS 05:59 05:59 MAGNESIUM+C.LAB.BRZ ordered. EDMS EDMS 05:59 05:59 PROBNP+C.LAB.BRZ ordered. EDMS EDMS 05:59 05:59 PROTIME (+INR)+COAG.LAB.BRZ ordered. EDMS EDMS 05:59 05:59 Troponin High Sensitivity+C.LAB.BRZ ordered. EDMS EDMS 05:59 05:59 THYROID STIMULAT HORMONE+C.LAB.BRZ ordered. EDMS EDMS 05:59 05:59 Urinalysis+U.LAB.BRZ ordered. EDMS EDMS 05:59 05:59 Chest Single View+RAD.RAD.BRZ ordered. EDMS EDMS 06:57 06:57 EC Echo Doppler W/Color Flow+ECHO.RAD.BRZ ordered. EDMS EDMS 08:22 06:27 Telemetry/MedSurg (Inpatient) jovanni kb3 08:22 06:27 jovanni kb3 11:57 08:22 [facility] ER HOLD kb3 iw 11:57 08:22 ERHOLD- kb3 iw
[2024-07-22 06:37] LABS: Albumin 3.2 g/dL (3.4-5.0); Albumin/Globulin Ratio 0.6 (1.1-1.8); Anion Gap 7.6 mEq/L (5.0-15.0); Bilirubin Direct 0.2 mg/dL (0-0.2); Bilirubin Indirect, Calculated 0.4 mg/dL (0.2-0.8); Bilirubin Total 0.6 mg/dL (0.2-1.0); Globulin 5.1 g/dL (2.3-3.5); Potassium 3.6 mEq/L (3.5-5.1); Protein, Total 8.3 g/dL (6.4-8.2); Thyroid Stimulating Hormone 1.75 uIU/mL (0.358-3.740); Troponin High Sensitivity 26.2 pg/mL (<58.9)
[2024-07-22 07:20] LABS: Specific Gravity 1.011 (1.005-1.030); Urine Bacteria None Seen /HPF (<20); Urine Bilirubin NEGATIVE (Negative); Urine Blood Negative (Negative); Urine Clarity Extremely Turbid (Clear); Urine Color Light-Yellow (Yellow); Urine Culture Reflex Order NOT NEEDED; Urine Glucose NEGATIVE (Negative); Urine Ketones NEGATIVE (Negative); Urine Microscopic Reflex YN ORDER UMIC; Urine Mucus Slight /HPF (None Seen); Urine Nitrite NEGATIVE (Negative); Urine Protein 1+ (Negative); Urine Urobilinogen Normal (Normal); Urine WBC <5 /HPF (<5)
[2024-07-22] MEDS ORDERED: ACETAMINOPHEN 325 MG TABLET PO PRN (07:24)
--- NOTE | 2024-07-22 07:39 | RAD REPORT ---
EXAMINATION: ONE VIEW CHEST XR CLINICAL INDICATION: DYSPNEA TECHNIQUE: Frontal chest projection is submitted. Examination is limited by patient positioning and t echnique. COMPARISON: No prior exam. FINDINGS: Mild bilateral interstitial prominence may represent interstitial pulmonary edema or infection. The h eart is upper limit of normal in size. No displaced fractures identified. IMPRESSION: Mild CHF is possible.
[2024-07-22] MEDS: APIXABAN 5 MG TABLET PO SCH ×2 (07:40→17:20)
[2024-07-22 09:33] VITALS: BMI 46.3
--- NOTE | 2024-07-22 10:21 | P.HP ---
Certification for Inpatient Patient admitted to: Observation With expected LOS: <2 Midnights Practitioner: I am a practitioner with admitting privileges, knowledge of patient current condition, hospital course, and medical plan of care. Services: Services provided to patient in accordance with Admission requirements found in Title 42 Section 412.3 of the Code of Federal Regulations Patient History Date of Service: 07/22/24 Reason for admission: Afib with RVR, SOB History of Present Illness: Rajani Givens is a 63 year old female with Pmhx Afib and HTN who presented to the ED with SOB, cough, and congestion this morning. She reports congestion started a few days ago but when getting dressed this morning she became short of breath. CXR indicates pulmonary edema likely CHF, BNP 1009, on RA. Lasix given in the ED with good urine output Initial vitals BP 181 / 113; Pulse 98; Resp 18; Temp 98.1; Pulse Ox 100% Rajani will be admitted to hospitalist service for further treatment of CHF, Afib with RVR. Cardiology consulted. Allergies No Known Drug Allergies Allergy (Verified 11/23/14 13:24) Unknown Home Medications: NK [No Home Meds] 11/23/14 - Past Medical/Surgical History Diabetic: No -: Epitaxis -: Afib -: HTN -: Denies - Family History Father -: Hypertension - Social History Smoking Status: Never smoker Alcohol use: No CD- Drugs: No Caffeine use: Yes Review of Systems Other: per HPI Physical Examination - Physical Exam General: Alert, In no apparent distress, Oriented x3 HEENT: Atraumatic, Normocephalic, PERRLA Neck: Supple, 2+ carotid pulse no bruit Respiratory: Clear to auscultation bilaterally, Normal air movement Cardiovascular: Normal pulses, Regular rate/rhythm, Normal S1 S2 Capillary refill: <2 Seconds Gastrointestinal: Normal bowel sounds, Soft and benign Musculoskeletal: No clubbing Integumentary: No breakdown Neurological: Normal speech, Normal tone - Studies Laboratory Data (last 24 hrs) 07/22/24 07/22/24 07/22/24 06:01 06:01 06:01 WBC 5.80 Hgb 12.3 Hct 38.4 Plt Count 298 PT 13.5 H INR 1.29 Sodium 141 Potassium 3.6 BUN 14 Creatinine 1.03 H Glucose 105 Magnesium 2.0 Total Bilirubin 0.6 AST 16 ALT 23 Alkaline Phosphatase 79 Assessment and Plan - Plan Assessment and Plan SOB 2/2 New onset CHF Afib with RVR -CXR indicates pulmonary edema likely CHF, BNP 1009 -Laxis x1 -continue home medications -ECHO ordered -Cardiology consulted Hypertensive -BP 181 / 113 -continue home medications DVT ppx Eliquis Full code LOS 24 hour OBS Discharge Plan: Home Plan to discharge in: 24 Hours - Advance Directives Does patient have a Living Will: No Does patient have a Durable POA for Healthcare: No
[2024-07-22] MEDS: carvediloL 6.25 MG TAB PO SCH (17:18)
[2024-07-22] MEDS: FUROSEMIDE 40 MG/4 ML VIAL IV ONE (17:19)
[2024-07-22] MEDS ORDERED: APIXABAN 5 MG TABLET PO SCH (21:00)
[2024-07-22] MEDS: carvediloL 6.25 MG TAB PO ONE (21:20)
[2024-07-22 21:21] LABS: SARS-CoV-2 Antigen CONTROL BLUE LINE VIS/BG OK; SARS-CoV-2 Antigen Rapid Res Negative (Negative)
[2024-07-22] MEDS: ATORVASTATIN 10 MG TAB PO SCH (23:03)
[2024-07-22 23:46] VITALS: O2SAT 98
[2024-07-23 05:28] LABS: Absolute Basophils 0.1 K/uL (0-0.5); Absolute Eosinophils 0.1 K/uL (0-0.5); Absolute Lymphocytes (CBC) 1.1 K/uL (0.7-4.9); Absolute Monocytes 0.9 K/uL (0.1-1.3); Absolute Neutrophil 3.3 K/uL (1.8-8.0); Eosinophils % 1.7 % (0-4.4); Hematocrit 37.3 % (36.0-45.0); Hemoglobin 12.3 g/dL (12.0-15.0); Lymphocytes % 20.2 % (15.3-44.8); MCH 27.4 pg (27.0-35.0); MCV 83.1 fL (80-100); Neutrophils % 61.1 % (41.7-73.7); Nucleated Red Blood Cells % 0.3 % (0-0); Platelets 247 thou/uL (152-406); RBC Red Blood Cell Count 4.49 M/uL (3.86-4.86); Red Cell Distribution Width 14.8 % (12.1-15.2)
[2024-07-23 05:48] LABS: Anion Gap 8.3 mEq/L (5.0-15.0); Magnesium 2.3 mg/dL (1.6-2.4); Phosphorus 3.3 mg/dL (2.5-4.9); Potassium 3.3 mEq/L (3.5-5.1)
[2024-07-23] MEDS ORDERED: POTASSIUM CL SA 10 MEQ TAB PO ONE (07:00)
[2024-07-23] MEDS ORDERED: ATORVASTATIN 10 MG TAB PO SCH (09:00)
[2024-07-23] MEDS: VENLAFAXINE HCL XR 75 MG CAP PO SCH (09:22)
[2024-07-23] MEDS: carvediloL 25 MG TAB PO SCH (09:22)
[2024-07-23] MEDS: POTASSIUM 25 MEQ EFFERV TAB PO ONE (09:22)
[2024-07-23] MEDS: LOSARTAN POTASSIUM 50 MG TABLET PO SCH (09:23)
--- NOTE | 2024-07-23 11:51 | P.CNS ---
Date of Consult: 07/23/24 Chief Complaint: Afib with RVR, SOB History of Present Illness: Patient with PMH of atrial fibrillation, presented with worsening SOB and ZEPEDA, denies any chest pain, no palpitations, no syncope, patient feels better today after lasix IV, she follows up with cardiology in [facility]. Allergies No Known Drug Allergies Allergy (Verified 11/23/14 13:24) Unknown Home medications list reviewed: Yes Home Medications: Apixaban [Eliquis] 5 mg PO BID 07/22/24 Atorvastatin Calcium 10 mg PO DAILY 07/22/24 Carvedilol [Coreg] 25 mg PO BID 07/22/24 Losartan Potassium 100 mg PO DAILY 07/22/24 Venlafaxine HCl *Xr* [Effexor XR] 75 mg PO DAILY 07/22/24 - Past Medical/Surgical History Diabetic: No -: Epitaxis -: Afib -: HTN -: Denies - Family History Father Medical History: Hypertension - Social History Smoking Status: Former smoker Alcohol use: No CD- Drugs: No Caffeine use: Yes Place of Residence: Home Review of Systems 10-point ROS is otherwise unremarkable Physical Examination Temp Pulse Resp BP Pulse Ox 98 F 92 H 16 119/70 99 07/23/24 08:00 07/23/24 09:22 07/23/24 08:00 07/23/24 09:22 07/23/24 08:00 General: Alert, In no apparent distress HEENT: Atraumatic, PERRLA, Mucous membr. moist/pink, EOMI, Sclerae nonicteric Neck: Supple, 2+ carotid pulse no bruit, No LAD, Without JVD or thyroid abnormality Respiratory: Clear to auscultation bilaterally, Normal air movement Cardiovascular: Irregular heart rate/rhythm Gastrointestinal: Normal bowel sounds, No tenderness Musculoskeletal: No tenderness Integumentary: No rashes Neurological: Normal gait, Normal speech, Normal tone, Normal affect Lymphatics: No axilla or inguinal lymphadenopathy - Problems (1) Atrial fibrillation Current Visit: Yes Status: Acute Plan: recommend switching Coreg to Toprol XL 100 mg daily continue Eliquis. advised to discuss with her cement [employer] possible CAYETANO DCCV vs AF ablation. (2) Elevated brain natriuretic peptide (BNP) level Current Visit: Yes Status: Acute Plan: patient feels better after getting IV lasix start Aldactone 25 mg daily continue losartan and metoprolol outpatient follow up with her [employer] [facility] [employer].
--- NOTE | 2024-07-23 12:44 | EKG ---
Test Date: 2024-07-22 Test Time: 06:11:41 [employer] Adf Developer: ZULLY MEASUREMENT RESULTS: Intervals: Rate: 105 [place]: QRSD: 78 QT: 332 QTc: 438 [place]: P: [place]: QRS: 70 T: 11 INTERPRETIVE STATEMENTS: Atrial fibrillation with rapid ventricular response Cannot rule out Anterior infarct, age undetermined Abnormal ECG No previous ECG available for comparison Electronically Signed On 07-23-24 12:41:52 BOTTLE CASER by Sridhar Archer
--- NOTE | 2024-07-23 13:15 | ECHO ---
HEIGHT: 5 ft 2 in WEIGHT: 253 lb 0.04 oz DATE OF STUDY: 07/23/[address]: Ming Calderon MD 2-DIMENSIONAL: YES M.MODE: YES DOPPLER: YES COLOR FLOW: YES TDS: PORTABLE: YES DEFINITY: BUBBLE STUDY: DIAGNOSIS: SHORTNESS OF BREATH CARDIAC HISTORY: CATHERIZATION: NO SURGERY: NO PROSTHETIC VALVE: NO PACEMAKER: NO MEASUREMENTS (cm) DIASTOLIC (NORMALS) SYSTOLIC (NORMALS) IVSd 1.2 (0.6-1.2) LA Diam 2.9 (1.9-4.0) LVEF 60-65% LVIDd 4.1 (3.5-5.7) LVIDs 2.9 (2.0-3.5) %FS 29% LVPWd 1.3 (0.6-1.2) Ao Diam 2.8 (2.0-3.7) 2 DIMENSIONAL ASSESSMENT: RIGHT ATRIUM: NORMAL LEFT ATRIUM: MILDLY DILATED RIGHT VENTRICLE: NORMAL LEFT VENTRICLE: NORMAL TRICUSPID VALVE: MILD TRICUSPID REGURGITATION MITRAL VALVE: TRACE MITRAL REGURGITATION PULMONIC VALVE: NORMAL AORTIC VALVE: NORMAL PERICARDIAL EFFUSION: NONE AORTIC ROOT: NORMAL LEFT VENTRICULAR WALL MOTION: NORMAL DOPPLER/COLOR FLOW: DIASTOLIC DYSFUNCTION COMMENTS: 1. NORMAL LEFT VENTRICULAR SYSTOLIC FUNCTION, EJECTION FRACTION 60-65%, NORMAL WALL MOTION 2. DIASTOLIC DYSFUNCTION DUE TO ARRHYTHMIA 3. NORMAL FILLING PRESSURE TECHNOLOGIST: LATA LUCIANO
--- NOTE | 2024-07-23 13:46 | P.DS ---
Admission Date: 07/22/24 Discharge Date: 07/23/24 Disposition: ROUTINE DISCHARGE Discharge Condition: GOOD Reason for Admission: Afib with RVR, SOB Brief History of Present Illness: Rajani Givens is a 63 year old female with Pmhx Afib and HTN who presented to the ED with SOB, cough, and congestion this morning. She reports congestion started a few days ago but when getting dressed this morning she became short of breath. CXR indicates pulmonary edema likely CHF, BNP 1009, on RA. Lasix given in the ED with good urine output Initial vitals BP 181 / 113; Pulse 98; Resp 18; Temp 98.1; Pulse Ox 100% Rajani will be admitted to hospitalist service for further treatment of CHF, Afib with RVR. Cardiology consulted. Hospital Course: Problem list Dyspnea, pulmonary edema Afib with RVR on chronic anticoagulation Hypertension Vital Signs/Physical Exam: Temp Pulse Resp BP Pulse Ox 97.8 F 92 H 16 134/64 99 07/23/24 12:00 07/23/24 12:00 07/23/24 12:00 07/23/24 12:00 07/23/24 12:00 General: Alert, In no apparent distress, Oriented x3 HEENT: Atraumatic, PERRLA Neck: Supple, JVD not distended Respiratory: Clear to auscultation bilaterally, Normal air movement Cardiovascular: Normal S1 S2, Irregular heart rate/rhythm (afib rate ~90) Gastrointestinal: Normal bowel sounds, No tenderness Musculoskeletal: No tenderness Integumentary: No rashes Neurological: Normal speech Lymphatics: No axilla or inguinal lymphadenopathy Laboratory Data at Discharge: WBC 5.40 thou/uL (4.3-10.9) 07/23/24 05:08 Hgb 12.3 g/dL (12.0-15.0) 07/23/24 05:08 Hct 37.3 % (36.0-45.0) 07/23/24 05:08 Plt Count 247 thou/uL (152-406) 07/23/24 05:08 PT 13.5 SECONDS (9.4-12.5) H 07/22/24 06:01 INR 1.29 07/22/24 06:01 Sodium 140 mEq/L (136-145) 07/23/24 05:08 Potassium 3.9 mEq/L (3.5-5.1) D 07/23/24 11:35 BUN 15 mg/dL (7-18) 07/23/24 05:08 Creatinine 1.02 mg/dL (0.55-1.02) 07/23/24 05:08 Glucose 100 mg/dL (74-106) 07/23/24 05:08 Phosphorus 3.3 mg/dL (2.5-4.9) 07/23/24 05:08 Magnesium 2.3 mg/dL (1.6-2.4) 07/23/24 05:08 Total Bilirubin 0.6 mg/dL (0.2-1.0) 07/22/24 06:01 AST 16 U/L (15-37) 07/22/24 06:01 ALT 23 U/L (13-56) 07/22/24 06:01 Alkaline Phosphatase 79 U/L (45-117) 07/22/24 06:01 Triglycerides 64 mg/dL (<150) 07/22/24 11:30 Cholesterol 145 mg/dL (<200) 07/22/24 11:30 HDL Cholesterol 37 mg/dL (40-60) L 07/22/24 11:30 Cholesterol/HDL Ratio 3.92 07/22/24 11:30 Home Medications: Apixaban [Eliquis] 5 mg PO BID 07/22/24 Atorvastatin Calcium 10 mg PO DAILY 07/22/24 Losartan Potassium 100 mg PO DAILY 07/22/24 Venlafaxine HCl *Xr* [Effexor XR] 75 mg PO DAILY 07/22/24 Metoprolol Succinate [Toprol Xl] 100 mg PO DAILY #60 tab 07/23/24 Spironolactone [Aldactone] 25 mg PO DAILY #60 tab 07/23/24 New Medications: Spironolactone [Aldactone] 25 mg PO DAILY #60 tab Metoprolol Succinate [Toprol Xl] 100 mg PO DAILY #60 tab Physician Discharge Instructions: Patient was admitted to the hospital for rapid A-fib with mild pulmonary edema. She was given IV Lasix in the emergency department and her symptoms significantly improved. She has no known history of CHF but does have a known history of atrial fibrillation and is on chronic anticoagulation with Eliquis. She has been doing well off of oxygen overnight and feels at her baseline, she reports that she had an echocardiogram with her personnel coordinator about 3 months ago and was told that everything was fine. She was seen by cardiology here who recommends switching her from Coreg 25 mg twice daily to Toprol-XL 100 mg daily as well as adding Aldactone 25 mg daily for mild diuretic effect. She is also instructed to follow-up with her personnel coordinator for further evaluation for possible cardioversion. Echo was also obtained during hospitalization which showed normal EF, diastolic dysfunction due to arrhythmia Stop Taking the Coreg/carvedilol New prescription in for Toprol XL 100 mg daily and spironolactone 25 mg daily sent to your pharmacy [facility] in [place] Follow-up with your primary care doctor and cardiology in the next 1 to 2 weeks Diet: AHA Activity: Ad mega Followup: Sridhar Archer MD [ACTIVE - CAN ADMIT] - 1-2 Weeks Daria Gu NP [Primary Care Provider] - 1-2 Weeks Time spent managing pt's care (in minutes): 51
[2024-07-23 16:43] VITALS: BP 123/77; TEMP 97.6
== END 2024-07-23 18:03 | disposition home or self-care (01) ==
LOC: ER 05:41 → ERHOLD 07:24 → 2ND 12:27
PROVIDERS: ADMIT Internal Medicine; ATTEND Hospitalist
DX: I48.11 Longstanding persistent atrial fibrillation (principal); I50.9 Heart failure, unspecified; I10 Essential (primary) hypertension; R79.89 Other specified abnormal findings of blood chemistry; Z79.01 Long term (current) use of anticoagulants; Z11.52 Encounter for screening for COVID-19
CPT/HCPCS: 96365; 93005; 93306; 85025 ×2; 81001; 80048 ×2; 36415 ×2; 83735 ×2; 84100; 84132; 85610; 80061; 80076; 84443; 84484 ×3; 84439; 83880; 87807; 87804 ×2; 71045; 96375; 99285; 96366; 87811; J3475; J1940 ×2; G0378